=== PATIENT | female | born 1980 | race Caucasian/White ===

== ENCOUNTER 2021-04-28 13:09 | Outpatient (CLI) | payer BC ==
[~2021-04-28 13:09] MED LIST: BIRTH CONTROL PILL PO; CETI-1 PO
[2021-04-28 13:54] LABS: BASOPHILS # (AUTO) 0.1 X10'3 (0-0.2); BASOPHILS % (AUTO) 1.2 % (0-1); EOSINOPHILS # (AUTO) 0.1 X10'3 (0-0.9); EOSINOPHILS % (AUTO) 1.2 % (0-6); HEMATOCRIT 40.7 % (35.0-45.0); HEMOGLOBIN 13.7 g/dl (12.0-16.0); LYMPHOCYTES # (AUTO) 1.5 X10'3 (1.1-4.8); LYMPHOCYTES % (AUTO) 27.7 % (21-51); MEAN CORPUSCULAR HEMOGLOBIN 28.5 PG (27.0-31.0); MEAN CORPUSCULAR HGB CONC 33.7 g/dL (33.0-36.5); MEAN CORPUSCULAR VOLUME 84.5 FL (78-98); MEAN PLATELET VOLUME 7.1 FL (7.4-10.4); MONOCYTES # (AUTO) 0.2 X10'3 (0-0.9); MONOCYTES % (AUTO) 4.4 % (2-12); NEUTROPHILS # (AUTO) 3.6 X10'3 (1.8-7.7); NEUTROPHILS % (AUTO) 65.5 % (42-75); PLATELET COUNT 364 X10'3 (140-440); RED BLOOD COUNT 4.81 X10'6 (4.20-5.60); RED CELL DISTRIBUTION WIDTH 12.9 % (11.5-14.5); WHITE BLOOD COUNT 5.5 X10'3 (4.5-11.0)
[2021-04-28 14:15] LABS: CHOL/HDL RATIO 3.6 (0.00-4.99); CHOLESTEROL 253 MG/DL (0-200); HDL CHOLESTEROL 70 MG/DL (35-60); LDL CHOLESTEROL 151 MG/DL (50-100); TRIGLYCERIDES 84 MG/DL (20-135)
== END 2021-04-28 23:59 | disposition home or self-care (01) ==
LOC: LAB 13:09
PROVIDERS: ATTEND Nurse Practitioner Women's Health
DX: Z01.419 Encounter for gynecological examination (general) (routine) without abnormal findings (principal)
CPT/HCPCS: 36415; 80061; 82306; 83036; 84439; 84443; 85025